=== PATIENT | male | born 1980 | race African-American/Black ===

== ENCOUNTER 2017-08-04 15:51 | Emergency (ER) | payer OTHER ==
--- NOTE | 2017-08-04 16:23 | ED Physician Documentation ---
PD HPI URI - Stated complaint Stated Complaint: FLU LIKE SYMPTOMS - Chief complaint Chief Complaint: Fever - History obtained from History obtained from: Patient - History of Present Illness Timing - onset: How many weeks ago (1 week of aches, congestion, cough, and clear drainage. Now with fevers, purulent discharge and feeling worse.) Timing duration: Weeks (1) Timing details: Gradual onset, Still present Associated symptoms: Fever, Chills, Nasal congestion, Sinus pain, Sore throat, Dry cough Contributing factors: No: Sick contact, Travel, Immunocompromised Improves by: No: Medication Similar symptoms before: Has not had sx before Recently seen: Not recently seen Review of Systems Constitutional: reports: Fever, Chills, Myalgias Nose: reports: Rhinorrhea / runny nose, Congestion, Sinus pressure / pain Throat: reports: Sore throat Cardiac: denies: Chest pain / pressure Respiratory: reports: Cough. denies: Dyspnea, Wheezing GI: denies: Nausea, Vomiting, Diarrhea Skin: denies: Rash, Lesions Neurologic: denies: Altered mental status, Headache PD PAST MEDICAL HISTORY - Past Medical History Respiratory: None Endocrine/Autoimmune: None - Past Surgical History Past Surgical History: No - Present Medications Home Medications: Ambulatory Orders Medication Instructions Recorded Confirmed Amox/Clav 875/125 [Augmentin] 1 each PO BID #14 tablet 08/04/17 Dexamethasone [Decadron] 4 mg PO DAILY #5 tablet 08/04/17 HYDROcod/ACETAM 5/325 [[place] 5/325] 1 tab PO Q6H PRN #15 tablet 08/04/17 - Allergies Allergies/Adverse Reactions: Allergies Allergy/AdvReac Type Severity Reaction Status Date / Time No Known Drug Allergies Allergy Verified 08/04/17 15:58 - Social History Does the pt smoke?: No Smoking Status: Never smoker Does the pt drink ETOH?: No Does the pt have substance abuse?: No - Immunizations Immunizations are current?: No PD ED PE NORMAL - Vitals Vital signs reviewed: Yes - General General: Alert and oriented X 3, Well developed/nourished - HEENT HEENT: Atraumatic, Ears normal, Pharynx benign, Other (sinus tender to percussion frontal and maxillary) - Neck Neck: Supple, no meningeal sign, No adenopathy - Cardiac Cardiac: RRR, No murmur - Respiratory Respiratory: Clear bilaterally - Abdomen Abdomen: Soft, Non tender - Derm Derm: Normal color, Warm and dry - Neuro Neuro: Alert and oriented X 3, No motor deficit, Normal speech Results - Vitals Vitals: Oxygen O2 Source Room air - Labs Labs: Laboratory Tests 08/04/17 16:47 Influenza A (Rapid) Negative Influenza B (Rapid) Negative Influenza Types A,B Ag - PD MEDICAL DECISION MAKING - ED course Complexity details: considered differential (has had URI symptoms and now more ill with fever, sinus pressure and purulent drainage. ), d/w patient Departure - Departure Disposition: 01 Home, Self Care Clinical Impression: Sinusitis, acute Qualifiers: Sinusitis location: frontal Recurrence: non-recurrent Qualified Code(s): J01.10 - Acute frontal sinusitis, unspecified Upper respiratory infection Qualifiers: URI type: unspecified URI Qualified Code(s): J06.9 - Acute upper respiratory infection, unspecified Condition: Stable Record reviewed to determine appropriate education?: Yes Instructions: ED Upper Resp Infec Abx Tx, ED Sinusitis Abx Tx Follow-Up: [facility] [Provider Group] Prescriptions: Amox/Clav 875/125 [Augmentin] 1 each PO BID #14 tablet Dexamethasone [Decadron] 4 mg PO DAILY #5 tablet HYDROcod/ACETAM 5/325 [[place] 5/325] 1 tab PO Q6H PRN #15 tablet PRN Reason: Pain Comments: Drink lots of fluids at home. Tylenol or ibuprofen if needed for fevers or mild pains. Decadron daily for 5 days for inflammation. Add hydrocodone if needed for pains. Augmentin twice daily for the next week for sounding like sinus infection. Recheck if not improved over the next couple of days as I would expect some tapering symptoms. Forms: Activity restrictions Discharge Date/Time: 08/04/17 18:04
[2017-08-04] MEDS ORDERED: ONDANSETRON ODT 4 MG TABLET TL STA (16:47)
[2017-08-04] MEDS ORDERED: HYDROcod/ACETAM 5/325 MG TABLET PO STA (16:47)
[2017-08-04] MEDS ORDERED: DEXAMETHASONE 10 MG/ML VIAL PO STA (16:47)
[2017-08-04] MEDS ORDERED: CHERRY SYRUP 10 ML UDC PO ONE (16:58)
[2017-08-04] MEDS ORDERED: AMOX/CLAV 875 MG/125 MG TABLET PO STA (17:33)
[2017-08-04 17:49] VITALS: BP 132/72
== END 2017-08-04 18:04 | disposition home or self-care (01) ==
LOC: ED 15:51
DX: J01.10 Acute frontal sinusitis, unspecified (principal); J06.9 Acute upper respiratory infection, unspecified
CPT/HCPCS: 87275; 87276; 99283; A9270; Q0162

== ENCOUNTER 2020-04-07 11:47 | Emergency (ER) | payer OTHER ==
--- NOTE | 2020-04-07 12:15 | ED Physician Documentation ---
History of Present Illness - Stated complaint Stated Complaint: ABNORMAL LABS - Chief complaint Chief Complaint: Cardiac - History obtained from History obtained from: Patient - Additonal information Additional information: 39-year-old gentleman with history of hypertension on chlorthalidone, no other vasoactive or cardioactive or renal active medications, he takes duloxetine, occasional Zomig, and was on metformin but is not now for "borderline diabetes. No history of renal problems. [facility] last week and reportedly his potassium was 5.7 both times. He does not know about other electrolytes or his renal function. He was referred here for further evaluation and treatment. His only specific complaint is occasional palpitations which have been going on for the last year, feels like an occasional heart pounding. Not happening right now. No chest pain or trouble breathing. No urinary complaints. No pedal edema. Review of Systems Ten Systems: 10 systems reviewed and negative Constitutional: denies: Fever, Chills Cardiac: reports: Palpitations. denies: Chest pain / pressure, Pedal edema Respiratory: denies: Dyspnea, Cough PD PAST MEDICAL HISTORY - Past Medical History Respiratory: None Endocrine/Autoimmune: None - Past Surgical History Past Surgical History: No - Present Medications Home Medications: Ambulatory Orders Medication Instructions Recorded Confirmed Amox/Clav 875/125 [Augmentin] 1 each PO BID #14 tablet 08/04/17 HYDROcod/ACETAM 5/325 [[place] 5/325] 1 tab PO Q6H PRN #15 tablet 08/04/17 dexAMETHasone [Decadron] 4 mg PO DAILY #5 tablet 08/04/17 - Allergies Allergies/Adverse Reactions: Allergies Allergy/AdvReac Type Severity Reaction Status Date / Time No Known Drug Allergies Allergy Verified 04/07/20 12:06 - Social History Does the pt smoke?: No Smoking Status: Never smoker Does the pt drink ETOH?: No Does the pt have substance abuse?: No - Immunizations Immunizations are current?: No - POLST Patient has POLST: No PD ED PE NORMAL - Vitals Vital signs reviewed: Yes - General General: Alert and oriented X 3, No acute distress - HEENT HEENT: Pharynx benign - Neck Neck: Supple, no meningeal sign, No bony TTP - Cardiac Cardiac: RRR - Respiratory Respiratory: No respiratory distress - Abdomen Abdomen: Non tender - Extremities Extremities: No edema, No calf tenderness / cord - Neuro Neuro: Alert and oriented X 3, Normal speech Results - Vitals Vitals: Vital Signs - 24 hr 04/07/20 04/07/20 04/07/20 11:55 12:06 12:36 Temperature 37.0 C Heart Rate 70 62 64 Respiratory 16 12 15 Rate Blood Pressure 146/98 H 136/102 H 131/106 H O2 Saturation 98 100 100 Oxygen O2 Source Nasal cannula - Labs Labs: Laboratory Tests 04/07/20 04/07/20 12:35 12:35 WBC 5.7 RBC 5.98 Hgb 16.4 Hct 49.7 MCV 83.1 MCH 27.4 MCHC 33.0 RDW 11.9 L Plt Count 221 MPV 9.4 Neut # (Auto) 2.1 Lymph # (Auto) 2.5 [place] # (Auto) 0.5 Eos # (Auto) 0.4 Baso # (Auto) 0.1 Absolute Nucleated RBC 0.00 Nucleated RBC % 0.0 Sodium 135 Potassium 3.1 L Chloride 95 L Carbon Dioxide 30 Anion Gap 10.0 BUN 15 Creatinine 1.0 Estimated GFR (MDRD) 100 Glucose 106 H Calcium 10.0 Magnesium 2.3 Total Bilirubin 1.4 H AST 32 ALT 31 Alkaline Phosphatase 53 Total Protein 8.5 H Albumin 4.9 Globulin 3.6 Albumin/Globulin Ratio 1.4 Lipase 47 PD MEDICAL DECISION MAKING - ED course ED course: 39-year-old gentleman on chlorthalidone referred in for hyperkalemia, presumed pseudohyperkalemia as his potassium was low here. Departure - Departure Disposition: 01 Home, Self Care Clinical Impression: Hypokalemia Condition: Good Record reviewed to determine appropriate education?: Yes Instructions: Hypokalemia Dc Comments: Potassium for lab was 3.1, this is somewhat low but expected since you are on chlorthalidone. Follow-up with your doctor as scheduled.
[2020-04-07 12:43] LABS: BASOPHILS # (AUTO) 0.1 10^3/uL (0.0-0.1); BASOPHILS % (AUTO) 1.1 %; EOSINOPHILS # (AUTO) 0.4 10^3/uL (0.0-0.7); EOSINOPHILS % (AUTO) 7.8 %; HGB - HEMOGLOBIN 16.4 g/dL (14.0-18.0); LYMPHOCYTES # (AUTO) 2.5 10^3/uL (1.5-3.5); LYMPHOCYTES % (AUTO) 44.5 %; MEAN CORPUSCULAR HEMOGLOBIN 27.4 pg (27.0-31.0); MEAN CORPUSCULAR VOLUME 83.1 fL (80.0-94.0); MEAN PLATELET VOLUME 9.4 fL (7.4-11.4); MONOCYTES # (AUTO) 0.5 10^3/uL (0.0-1.0); MONOCYTES % (AUTO) 8.5 %; NEUTROPHILS # (AUTO) 2.1 10^3/uL (1.5-6.6); NEUTROPHILS % (AUTO) 37.7 %; PLT - PLATELET COUNT 221 10^3/uL (130-450); RED BLOOD COUNT 5.98 10^6/uL (4.70-6.10); RED CELL DISTRIBUTION WIDTH 11.9 % (12.0-15.0); WHITE BLOOD COUNT 5.7 x10^3/uL (4.8-10.8)
[2020-04-07 12:58] LABS: ALBUMIN 4.9 g/dL (3.2-5.5); ALBUMIN/GLOBULIN RATIO 1.4 (1.0-2.2); BILIRUBIN,TOTAL 1.4 mg/dL (0.2-1.0); MAGNESIUM 2.3 mg/dL (1.7-2.8); TOTAL PROTEIN 8.5 g/dL (6.7-8.2)
[2020-04-07 13:10] VITALS: BP 130/98
== END 2020-04-07 13:10 | disposition home or self-care (01) ==
LOC: ED 11:47
DX: E87.6 Hypokalemia (principal); I10 Essential (primary) hypertension; R73.03 Prediabetes
CPT/HCPCS: 36415; 80053; 83690; 83735; 85025; 99283

== ENCOUNTER 2021-06-30 17:43 | Emergency (ER) | payer OTHER ==
[2021-06-30 18:21] LABS: BASOPHILS # (AUTO) 0.1 10^3/uL (0.0-0.1); BASOPHILS % (AUTO) 1.1 %; EOSINOPHILS # (AUTO) 0.7 10^3/uL (0.0-0.7); EOSINOPHILS % (AUTO) 8.7 %; HCT - HEMATOCRIT 47.9 % (42.0-52.0); HGB - HEMOGLOBIN 15.6 g/dL (14.0-18.0); LYMPHOCYTES # (AUTO) 3.5 10^3/uL (1.5-3.5); LYMPHOCYTES % (AUTO) 43.3 %; MEAN CORPUSCULAR HEMOGLOBIN 27.3 pg (27.0-31.0); MEAN CORPUSCULAR HGB CONC 32.6 g/dL (32.0-36.0); MEAN CORPUSCULAR VOLUME 83.7 fL (80.0-94.0); MEAN PLATELET VOLUME 9.2 fL (7.4-11.4); MONOCYTES # (AUTO) 0.7 10^3/uL (0.0-1.0); MONOCYTES % (AUTO) 9.1 %; NEUTROPHILS % (AUTO) 37.6 %; PLT - PLATELET COUNT 199 10^3/uL (130-450); RED BLOOD COUNT 5.72 10^6/uL (4.70-6.10); RED CELL DISTRIBUTION WIDTH 12.2 % (12.0-15.0); WHITE BLOOD COUNT 8.1 x10^3/uL (4.8-10.8)
--- NOTE | 2021-06-30 18:52 | ED Physician Documentation ---
PD HPI CHEST PAIN - Stated complaint Stated Complaint: CP - Chief complaint Chief Complaint: Cardiac - History obtained from History obtained from: Patient - Additional information Additional information: 41-year-old gentleman who has a history of migraines and reflux, but no real risk factors for coronary disease has had intermittent sharp left anterior chest pain for the last 3 days. There is no particular pattern to it. It lasts about half an hour at a time. It is not exertional. There is no associated shortness of breath or nausea or sweats. Review of Systems Constitutional: denies: Fever, Chills Nose: denies: Rhinorrhea / runny nose, Congestion Cardiac: denies: Palpitations Respiratory: denies: Dyspnea, Cough PD PAST MEDICAL HISTORY - Past Medical History Cardiovascular: Other Respiratory: None Neuro: Migraines Endocrine/Autoimmune: None GI: GERD : None HEENT: None Psych: None Musculoskeletal: None Derm: None - Past Surgical History Past Surgical History: No - Present Medications Home Medications: Ambulatory Orders Medication Instructions Recorded Confirmed Amox/Clav 875/125 [Augmentin] 1 each PO BID #14 tablet 08/04/17 HYDROcod/ACETAM 5/325 [[place] 5/325] 1 tab PO Q6H PRN #15 tablet 08/04/17 dexAMETHasone [Decadron] 4 mg PO DAILY #5 tablet 08/04/17 - Allergies Allergies/Adverse Reactions: Allergies Allergy/AdvReac Type Severity Reaction Status Date / Time No Known Drug Allergies Allergy Verified 06/30/21 17:46 - Social History Does the pt smoke?: No Smoking Status: Never smoker Does the pt drink ETOH?: No Does the pt have substance abuse?: No - Immunizations Immunizations are current?: No - POLST Patient has POLST: No PD ED PE NORMAL - Vitals Vital signs reviewed: Yes - General General: Alert and oriented X 3, No acute distress - HEENT HEENT: PERRL, EOMI - Neck Neck: Supple, no meningeal sign, No bony TTP - Cardiac Cardiac: RRR, No murmur - Respiratory Respiratory: No respiratory distress, Clear bilaterally - Abdomen Abdomen: Non tender - Extremities Extremities: No edema, No calf tenderness / cord - Neuro Neuro: Alert and oriented X 3, Normal speech Results - Vitals Vitals: Vital Signs - 24 hr 06/30/21 06/30/21 17:47 19:37 Temperature 36.4 C L Heart Rate 66 67 Respiratory 16 16 Rate Blood Pressure 148/97 H 132/97 H O2 Saturation 97 95 Oxygen O2 Source Room air - EKG (time done) 1757 Rate: Rate (enter#) (66) Rhythm: NSR [place]: Normal Intervals: LBBB (barely, qrsd 121) Ischemia: Normal ST segments - Labs Labs: Laboratory Tests 06/30/21 06/30/21 06/30/21 18:00 18:00 18:00 WBC 8.1 RBC 5.72 Hgb 15.6 Hct 47.9 MCV 83.7 MCH 27.3 MCHC 32.6 RDW 12.2 Plt Count 199 MPV 9.2 Neut # (Auto) 3.0 Lymph # (Auto) 3.5 [place] # (Auto) 0.7 Eos # (Auto) 0.7 Baso # (Auto) 0.1 Absolute Nucleated RBC 0.00 Nucleated RBC % 0.0 Sodium 137 Potassium 3.1 L Chloride 94 L Carbon Dioxide 31 Anion Gap 12.0 BUN 19 Creatinine 1.4 H Estimated GFR (MDRD) 67 L Glucose 114 H Calcium 9.6 Total Bilirubin 1.2 H AST 31 ALT 29 Alkaline Phosphatase 65 Troponin I High Sens 5.3 Total Protein 8.5 H Albumin 5.1 Globulin 3.4 Albumin/Globulin Ratio 1.5 Lipase 51 - Rads (name of study) Single view chest x-ray is unremarkable Radiology: EMP read contemporaneously PD MEDICAL DECISION MAKING - ED course ED course: 41-year-old gentleman with atypical nonexertional intermittent chest pain that seems muscular. Work-up here was negative. Given close return and follow-up precautions. Departure - Departure Disposition: 01 Home, Self Care Clinical Impression: Atypical chest pain Condition: Good Record reviewed to determine appropriate education?: Yes Instructions: ED Chest Pain Atypical Unkn Cause Comments: Testing on your heart looks fine, chest x-ray unremarkable. We did note that your creatinine today is 1.4 which suggests mild decreased kidney function. This needs to be follow-up with your primary care physician for both this as well as recheck of your heart. Return for new or worsening symptoms. Discharge Date/Time: 06/30/21 19:38
[2021-06-30 18:53] LABS: ALBUMIN 5.1 g/dL (3.2-5.5); ALBUMIN/GLOBULIN RATIO 1.5 (1.0-2.2); BILIRUBIN,TOTAL 1.2 mg/dL (0.2-1.0); CALCIUM 9.6 mg/dL (8.5-10.3); CREATININE 1.4 mg/dL (0.6-1.2); POTASSIUM 3.1 mmol/L (3.5-5.0); TOTAL PROTEIN 8.5 g/dL (6.7-8.2)
--- NOTE | 2021-06-30 19:09 | XRAY Report ---
PROCEDURE: Chest 1 View X-Ray INDICATIONS: Chest Pain TECHNIQUE: One view of the chest was acquired. COMPARISON: Chest x-ray 06/01/2015 FINDINGS: Surgical changes and devices: None. Lungs and pleura: No pleural effusions or pneumothorax. Lungs are clear. Mediastinum: Mediastinal contours appear normal. Heart size is mildly enlarged. Bones and chest wall: No suspicious bony lesions. Overlying soft tissues appear unremarkable. IMPRESSION: No acute pulmonary process. Reviewed by: Deb Monzon MD on 06/30/2021 7:08 PM PST Approved by: Deb Monzon MD on 06/30/2021 7:08 PM [facility] Station ID: [id number]
[2021-06-30 19:37] VITALS: BP 132/97
== END 2021-06-30 19:38 | disposition home or self-care (01) ==
LOC: ED 17:43
DX: R07.89 Other chest pain (principal)
CPT/HCPCS: 36415; 80053; 83690; 84484; 85025; 93005; 99283; 99284

== ENCOUNTER 2022-12-13 13:56 | Emergency (ER) | payer OTHER ==
[2022-12-13 14:05] VITALS: BP 140/90
--- NOTE | 2022-12-13 15:41 | ED Physician Documentation ---
History of Present Illness - Stated complaint Stated Complaint: NECK,CHEST PX - Chief complaint Chief Complaint: Trauma Hd/Nk - History obtained from History obtained from: Patient - Additonal information Additional information: The patient comes to the emergency department chief complaint of ongoing cough for months. He states its been keeping him up at night and he is just so tired of coughing. He seen his primary doctor and has been through x-rays, courses of steroids, courses of antibiotics, and even a pulmonology consult. The teachers assistant is going to do pulmonary function tests on the patient but in the meantime, the patient states that his cough goes on. He has been using an albuterol inhaler when he wakes up coughing at night but nothing seems to help. His cough is dry. He has been told by his PCP that it may be allergies but he is waiting for The referral to the telephone quotation clerk to go through. Patient denies fevers or chills. He is not a smoker. Patient does note that he became lightheaded a couple of days ago after not sleeping well at night and had a syncopal episode. He did hit his head he thinks on the floor and awakened to his picking him up. He states he has had some soreness going down between his neck and shoulders on both sides ever since, but denies any headache. No focal neurologic deficits. The patient states he is not really concerned about that as much as just that he wants something for the cough. PD PAST MEDICAL HISTORY - Past Medical History Cardiovascular: Other Respiratory: None Neuro: Migraines Endocrine/Autoimmune: None GI: GERD : None HEENT: None Psych: None Musculoskeletal: None Derm: None - Past Surgical History Past Surgical History: No - Present Medications Home Medications: Ambulatory Orders Medication Instructions Recorded Confirmed Amox/Clav 875/125 [Augmentin] 1 each PO BID #14 tablet 08/04/17 HYDROcod/ACETAM 5/325 [[place] 5/325] 1 tab PO Q6H PRN #15 tablet 08/04/17 dexAMETHasone [Decadron] 4 mg PO DAILY #5 tablet 08/04/17 Acetaminophen/Cod 300/30 [Tylenol 1 each PO Q4-6H PRN #20 tablet 12/13/22 #3] Benzonatate [Tessalon] 100 mg PO TID #30 cap 12/13/22 - Allergies Allergies/Adverse Reactions: Allergies Allergy/AdvReac Type Severity Reaction Status Date / Time No Known Drug Allergies Allergy Verified 12/13/22 14:01 - Social History Does the pt smoke?: No Smoking Status: Never smoker Does the pt drink ETOH?: No Does the pt have substance abuse?: No - Immunizations Immunizations are current?: No - POLST Patient has POLST: No PD ED PE NORMAL - Vitals Vital signs reviewed: Yes - General General: Alert and oriented X 3, No acute distress, Well developed/nourished - HEENT HEENT: Atraumatic, PERRL, EOMI, Moist mucous membranes - Neck Neck: Supple, no meningeal sign, No bony TTP, Other (Tenderness palpation over bilateral trapezius muscles) - Cardiac Cardiac: RRR, No murmur, Strong equal pulses - Respiratory Respiratory: No respiratory distress, Clear bilaterally - Abdomen Abdomen: Soft, Non tender, Non distended - Derm Derm: Normal color, Warm and dry, No rash - Extremities Extremities: No deformity, No edema - Neuro Neuro: Alert and oriented X 3, internet systems administrator 2-12 intact, No motor deficit, No sensory deficit, Normal speech - Psych Psych: Normal mood, Normal affect Results - Vitals Vitals: Vital Signs - 24 hr 12/13/22 14:01 Temperature 36.5 C Heart Rate 70 Respiratory 16 Rate Blood Pressure 140/90 H O2 Saturation 98 Oxygen O2 Source Room air PD Medical Decision Making - ED course Complexity details: considered differential, d/w patient ED course: The patient was very well-appearing and did not have any C-spine tenderness. It had been over 2 days since his fall and he did not have any neurologic deficits. At this point, I do not feel CTs of either the head or the C-spine are indicated at this time. I will prescribe the patient some cough medication and I have advised him to continue following up with his primary care physician and his teachers assistant. We have discussed the usual indications for return. Departure - Departure Disposition: 01 Home, Self Care Clinical Impression: Cough Qualifiers: Cough type: chronic Qualified Code(s): R05.3 - Chronic cough Neck strain Qualifiers: Encounter type: initial encounter Qualified Code(s): S16.1XXA - Strain of muscle, fascia and tendon at neck level, initial encounter Condition: Stable Instructions: ED Sprain Strain Neck, ED Cough Chronic Cause Unkn Prescriptions: Benzonatate [Tessalon] 100 mg PO TID #30 cap Acetaminophen/Cod 300/30 [Tylenol #3] 1 each PO Q4-6H PRN #20 tablet PRN Reason: Cough Comments: There is no evidence of a broken neck at this time. It is not clear what is causing your chronic cough and it sounds like you have had a lot of work-up for this, including with pulmonology specialist. For now, we will offer you a couple of prescription cough medicines and see if this helps. The prescription for these has been electronically transmitted to the [facility] pharmacy in [place]. Please follow-up with your primary doctor and teachers assistant for further concerns.
== END 2022-12-13 16:00 | disposition home or self-care (01) ==
LOC: ED 13:56
DX: R05.3 Chronic cough (principal); S16.1XXA Strain of muscle, fascia and tendon at neck level, initial encounter; X58.XXXA Exposure to other specified factors, initial encounter
CPT/HCPCS: 99281; 99283